=== PATIENT | female | born 1945 | race Caucasian/White ===

== ENCOUNTER 2017-01-15 08:04 | Emergency (ER) | payer BC ==
[~2017-01-15] VITALS: Ht 154.9 cm; Wt 63.6 kg
[~2017-01-15 08:04] MED LIST: ALEN70TA48 PO; ASPI-556 PO; ATOR20TA86 PO; CALC-879 PO; DSS100 PO; HYDR200T4 PO; ISOS10TA16 PO; LEVO50 PO; LOVA20 PO; METF500T4 PO; OMEG1CAP55 PO; TEMO15C TP; VALS80TA2 PO
[2017-01-15 08:21] LABS: GLUCOSE,POINT OF CARE 166 MG/DL (70-110)
[2017-01-15] MEDS ORDERED: ASPIRIN 81 MG CHEWABLE TABLET PO ONE ×2 (08:30→09:30)
[2017-01-15 08:43] LABS: BASOPHILS # (AUTO) 0.05 K/uL (0.00-0.20); BASOPHILS % (AUTO) 0.7 % (0.0-2.0); EOSINOPHILS # (AUTO) 0.04 K/uL (0.00-0.70); EOSINOPHILS % (AUTO) 0.55 % (1.0-6.0); HEMATOCRIT 34.1 % (36-46); HEMOGLOBIN 11.8 g/dL (12.0-16.0); LYMPHOCYTES # (AUTO) 1.1 K/uL (1.0-4.8); LYMPHOCYTES % (AUTO) 15.9 % (22.0-44.0); MEAN CORPUSCULAR HEMOGLOBIN 33.3 pg (26.0-34.0); MEAN CORPUSCULAR HGB CONC 34.6 G/dL (31.0-37.0); MEAN CORPUSCULAR VOLUME 96 fL (80-100); MONOCYTES # (AUTO) 0.3 K/uL (0.1-1.0); MONOCYTES % (AUTO) 4.2 % (2.0-9.0); NEUTROPHILS # (AUTO) 5.5 K/uL (1.8-7.7); NEUTROPHILS % (AUTO) 78.7 % (40.0-70.0); PLATELET COUNT (AUTO) 327 K/uL (150-450); RED BLOOD CELL COUNT(AUTO) 3.54 MIL/uL (4.00-5.20); RED CELL DISTRIBUTION WIDTH 12.9 % (11.5-14.5)
[2017-01-15 08:52] LABS: ANION GAP 8 mmol/L (8-16); CALCIUM, TOTAL 9.5 mg/dL (8.8-10.5); CARBON DIOXIDE 28 mmol/L (22-29); CHLORIDE 97 mmol/L (98-107); CREATININE 0.98 mg/dL (0.60-1.30); GLOMERULAR FILTR. RATE CALC 56 mL/min (>60); POTASSIUM 3.8 mmol/L (3.5-5.1); SODIUM SERUM 133 mmol/L (136-145); UREA NITROGEN, BLOOD 15 mg/dL (7-18)
[2017-01-15 09:01] LABS: B-TYPE NATRIURETIC PEPTIDE 28 pg/mL (0-100)
[2017-01-15 09:16] LABS: ALANINE AMINOTRANSFERASE 28 U/L (12-78); ALBUMIN 3.9 g/dL (3.4-5.0); ASPARTATE AMINOTRANSFERASE 22 U/L (15-37); BILIRUBIN,TOTAL 0.3 mg/dL (0.1-1.0); CREATINE KINASE MB 0.7 ng/mL (0-5); CREATINE KINASE, TOTAL 106 U/L (26-192); TOTAL PROTEIN, SERUM 7.6 g/dL (6.4-8.2)
[2017-01-15 10:46] LABS: APPEARANCE,URINE CLEAR (CLEAR); GLUCOSE, URINE (UA) NEGATIVE (NEGATIVE); KETONES,URINE NEGATIVE (NEGATIVE); LEUKOCYTE ESTERASE ,URINE NEGATIVE (NEGATIVE); OCCULT BLOOD,URINE NEGATIVE (NEGATIVE); PH,URINE 6.5 (5.0-8.0); PROTEIN,URINE NEGATIVE (NEGATIVE)
[2017-01-15 10:50] LABS: ADD UA MICROSCOPIC NO
[2017-01-15 11:07] VITALS: BP 156/69
== END 2017-01-15 11:30 | disposition home or self-care (01) ==
LOC: EMS 08:06
DX: R07.89 Other chest pain (principal); E11.9 Type 2 diabetes mellitus without complications; E03.9 Hypothyroidism, unspecified; I20.9 Angina pectoris, unspecified; K21.9 Gastro-esophageal reflux disease without esophagitis; E78.00 Pure hypercholesterolemia, unspecified; I10 Essential (primary) hypertension; Z87.440 Personal history of urinary (tract) infections; Z79.82 Long term (current) use of aspirin; Z88.2 Allergy status to sulfonamides
CPT/HCPCS: 82962; 93005; 99285

== ENCOUNTER 2017-06-17 10:35 | Emergency (ER) | payer BC ==
[~2017-06-17] VITALS: Ht 149.9 cm; Wt 47.3 kg
[~2017-06-17 10:35] MED LIST changes: +CALC-1085 PO; -CALC-879 PO; +OMEG-136 PO; -OMEG1CAP55 PO
[2017-06-17 10:47] LABS: GLUCOSE,POINT OF CARE 130 MG/DL (70-110)
[2017-06-17 11:22] LABS: BASOPHILS % (AUTO) 0.7 % (0.0-2.0); EOSINOPHILS % (AUTO) 1.1 % (1.0-6.0); HEMATOCRIT 34.2 % (36-46); HEMOGLOBIN 11.8 g/dL (12.0-16.0); LYMPHOCYTES % (AUTO) 11.9 % (22.0-44.0); MEAN CORPUSCULAR HEMOGLOBIN 32.3 pg (26.0-34.0); MEAN CORPUSCULAR HGB CONC 34.5 G/dL (31.0-37.0); MEAN CORPUSCULAR VOLUME 94 fL (80-100); MONOCYTES # (AUTO) 0.6 K/uL (0.1-1.0); MONOCYTES % (AUTO) 7.2 % (2.0-9.0); NEUTROPHILS # (AUTO) 6.8 K/uL (1.8-7.7); NEUTROPHILS % (AUTO) 79.1 % (40.0-70.0); PLATELET COUNT (AUTO) 348 K/uL (150-450); RED BLOOD CELL COUNT(AUTO) 3.66 MIL/uL (4.00-5.20); RED CELL DISTRIBUTION WIDTH 12.9 % (11.5-14.5); WHITE BLOOD COUNT (AUTO) 8.5 K/uL (4.5-11.0)
[2017-06-17 11:32] LABS: ANION GAP 11 mmol/L (8-16); CALCIUM, TOTAL 9.6 mg/dL (8.8-10.5); CARBON DIOXIDE 26 mmol/L (22-29); CHLORIDE 100 mmol/L (98-107); CREATININE 0.92 mg/dL (0.60-1.30); GLOMERULAR FILTR. RATE CALC 60 mL/min (>60); POTASSIUM 3.9 mmol/L (3.5-5.1); SODIUM SERUM 137 mmol/L (136-145); UREA NITROGEN, BLOOD 15 mg/dL (7-18)
[2017-06-17 11:36] LABS: INR 0.9 (0.9-1.1); PROTHROMBIN TIME 9.8 SEC (9.4-11.6)
[2017-06-17 11:50] LABS: B-TYPE NATRIURETIC PEPTIDE 66 pg/mL (0-100)
[2017-06-17 11:56] LABS: ALANINE AMINOTRANSFERASE 52 U/L (12-78); ALBUMIN 3.6 g/dL (3.4-5.0); ASPARTATE AMINOTRANSFERASE 33 U/L (15-37); BILIRUBIN,TOTAL 0.5 mg/dL (0.1-1.0); CREATINE KINASE, TOTAL 104 U/L (26-192); TOTAL PROTEIN, SERUM 8.5 g/dL (6.4-8.2)
[2017-06-17 11:57] LABS: CREATINE KINASE MB < 0.5 ng/mL (0-5)
[2017-06-17] MEDS ORDERED: DOXYCYCLINE 100 MG in DEXTROSE 5%-WATER 100 ML IV ONE (12:30)
[2017-06-17 14:15] VITALS: BP 115/57
== END 2017-06-17 14:17 | disposition home or self-care (01) ==
LOC: EMS 10:36
DX: L03.116 Cellulitis of left lower limb (principal); E11.9 Type 2 diabetes mellitus without complications; I10 Essential (primary) hypertension; E78.00 Pure hypercholesterolemia, unspecified; E03.9 Hypothyroidism, unspecified; K21.9 Gastro-esophageal reflux disease without esophagitis; Z88.2 Allergy status to sulfonamides
CPT/HCPCS: 36415; 80053; 82550; 82553; 82962; 83880; 84484; 85025; 85610; 85730; 87040; 93005; 93971; 96374; 99285; J3490; J7060

== ENCOUNTER 2017-06-28 09:49 | Emergency (ER) | payer BC ==
[~2017-06-28] VITALS: Ht 149.9 cm; Wt 47.3 kg
[2017-06-28] MEDS ORDERED: AMLO-512 PO (09:56)
[2017-06-28 10:02] LABS: GLUCOSE,POINT OF CARE 162 MG/DL (70-110)
[2017-06-28] MEDS ORDERED: SODIUM CHLORIDE 0.9% 1,000 ML IV ONE (11:15)
[2017-06-28] MEDS ORDERED: ONDANSETRON HCL 4 MG/2 ML VIAL IVP ONE (11:15)
[2017-06-28 11:37] VITALS: BP 122/50
[2017-06-28 11:47] LABS: BASOPHILS % (AUTO) 0.4 % (0.0-2.0); EOSINOPHILS % (AUTO) 0.2 % (1.0-6.0); HEMATOCRIT 34.4 % (36-46); HEMOGLOBIN 12.1 g/dL (12.0-16.0); LYMPHOCYTES # (AUTO) 0.8 K/uL (1.0-4.8); LYMPHOCYTES % (AUTO) 12.5 % (22.0-44.0); MEAN CORPUSCULAR HEMOGLOBIN 32.1 pg (26.0-34.0); MEAN CORPUSCULAR HGB CONC 35.1 G/dL (31.0-37.0); MEAN CORPUSCULAR VOLUME 92 fL (80-100); MONOCYTES # (AUTO) 0.3 K/uL (0.1-1.0); NEUTROPHILS # (AUTO) 5.4 K/uL (1.8-7.7); NEUTROPHILS % (AUTO) 81.9 % (40.0-70.0); PLATELET COUNT (AUTO) 529 K/uL (150-450); RED BLOOD CELL COUNT(AUTO) 3.75 MIL/uL (4.00-5.20); RED CELL DISTRIBUTION WIDTH 12.1 % (11.5-14.5)
[2017-06-28 11:53] LABS: ANION GAP 11 mmol/L (8-16); CALCIUM, TOTAL 9.9 mg/dL (8.8-10.5); CARBON DIOXIDE 25 mmol/L (22-29); CHLORIDE 95 mmol/L (98-107); CREATININE 0.88 mg/dL (0.60-1.30); GLOMERULAR FILTR. RATE CALC > 60 mL/min (>60); GLUCOSE,RANDOM 96 mg/dL (70-110); POTASSIUM 4.2 mmol/L (3.5-5.1); SODIUM SERUM 131 mmol/L (136-145); UREA NITROGEN, BLOOD 15 mg/dL (7-18)
[2017-06-28 11:59] LABS: ALANINE AMINOTRANSFERASE 27 U/L (12-78); ALBUMIN 3.8 g/dL (3.4-5.0); ALKALINE PHOSPHATASE 124 U/L (46-116); ASPARTATE AMINOTRANSFERASE 27 U/L (15-37); BILIRUBIN,TOTAL 0.3 mg/dL (0.1-1.0); TOTAL PROTEIN, SERUM 8.3 g/dL (6.4-8.2)
== END 2017-06-28 12:58 | disposition home or self-care (01) ==
LOC: EMS 09:50
DX: J11.1 Influenza due to unidentified influenza virus with other respiratory manifestations (principal); E11.9 Type 2 diabetes mellitus without complications; K21.9 Gastro-esophageal reflux disease without esophagitis; E78.00 Pure hypercholesterolemia, unspecified; I10 Essential (primary) hypertension; E03.9 Hypothyroidism, unspecified; M81.0 Age-related osteoporosis without current pathological fracture; M32.9 Systemic lupus erythematosus, unspecified; Z88.2 Allergy status to sulfonamides; Z86.718 Personal history of other venous thrombosis and embolism; Z79.82 Long term (current) use of aspirin
CPT/HCPCS: 36415; 80053; 82962; 85025; 96374; 99284; J2405; J7030

== ENCOUNTER 2020-11-16 16:48 | Inpatient (IN) | payer BC ==
[~2020-11-16] VITALS: Ht 149.9 cm; Wt 44.1 kg
[~2020-11-16 16:48] MED LIST changes: -ALEN70TA48 PO; +ALEN70TA65 PO; +AMLO-258 PO; -LOVA20 PO; +LOVA20TA73 PO; +METF-960 PO; -METF500T4 PO; -TEMO15C TP; -VALS80TA2 PO
[2020-11-16] MEDS ORDERED: SODIUM CHLORIDE 0.9% 1,000 ML IV ONE (17:30)
[2020-11-16] MEDS ORDERED: ONDANSETRON HCL 4 MG/2 ML VIAL IVP ONE (17:30)
[2020-11-16 17:38] LABS: BASOPHILS % (AUTO) 0.2 % (0.0-2.0); EOSINOPHILS % (AUTO) 0.1 % (1.0-6.0); HEMOGLOBIN 9.6 g/dL (12.0-16.0); LYMPHOCYTES # (AUTO) 0.6 K/uL (1.0-4.8); LYMPHOCYTES % (AUTO) 5.9 % (22.0-44.0); MEAN CORPUSCULAR HEMOGLOBIN 31.9 pg (26.0-34.0); MEAN CORPUSCULAR HGB CONC 35.4 G/dL (31.0-37.0); MEAN CORPUSCULAR VOLUME 90 fL (80-100); MONOCYTES # (AUTO) 0.4 K/uL (0.1-1.0); MONOCYTES % (AUTO) 3.9 % (2.0-9.0); NEUTROPHILS # (AUTO) 9.2 K/uL (1.8-7.7); PLATELET COUNT (AUTO) 311 K/uL (150-450); RED CELL DISTRIBUTION WIDTH 13.1 % (11.5-14.5)
[2020-11-16 17:39] LABS: NEUTROPHILS % (AUTO) 89.9 % (40.0-70.0)
[2020-11-16 18:13] LABS: BILIRUBIN,TOTAL 0.6 mg/dL (0.1-1.0); CALCIUM, TOTAL 8.6 mg/dL (8.8-10.5); CREATININE 0.99 mg/dL (0.60-1.30); MAGNESIUM 1.4 mg/dL (1.80-2.40); POTASSIUM 3.7 mmol/L (3.5-5.1)
[2020-11-16] MEDS ORDERED: MAGNESIUM SULFATE 2 GM/WATER 50 ML IV ONE (18:45)
[2020-11-16] MEDS ORDERED: RINGERS SOLUTION,LACTATED 1,500 ML IV ONE (18:45)
[2020-11-16] MEDS ORDERED: MAGNESIUM SULFATE 2 GM/WATER 50 ML IV PRN (19:15)
[2020-11-16] MEDS ORDERED: MAGNESIUM SULFATE 4 GM/WATER 100 ML IV PRN (19:15)
[2020-11-16] MEDS ORDERED: MAGNESIUM OXIDE 400 MG TABLET PO PRN (19:15)
[2020-11-16 20:10] LABS: POTASSIUM,URINE RANDOM 12 mmol/L (12-75); SODIUM,URINE RANDOM 72 mmol/l (20-110)
[2020-11-16] MEDS ORDERED: DEXTROSE 50%-WATER 25 GM/50 ML SYRINGE IVP PRN (20:15)
[2020-11-16 20:19] LABS: % IRON SATURATION 24.1 % (22-44); IRON, SERUM 91 mcg/dL (50-175); TOTAL IRON BINDING CAPACITY 377 mcg/dL (250-450)
[2020-11-16 20:20] LABS: ANION GAP 12 mmol/L (8-16); CALCIUM, TOTAL 8.7 mg/dL (8.8-10.5); CARBON DIOXIDE 22 mmol/L (22-29); CHLORIDE 91 mmol/L (98-107); CREATININE 0.89 mg/dL (0.60-1.30); GLOMERULAR FILTR. RATE CALC > 60 mL/min (>60); GLUCOSE,RANDOM 147 mg/dL (70-110); POTASSIUM 4.1 mmol/L (3.5-5.1); SODIUM SERUM 125 mmol/L (136-145); UREA NITROGEN, BLOOD 14 mg/dL (7-18)
[2020-11-16] MEDS: SODIUM CHLORIDE 0.9% 1,500 ML IV ONE ×2 (20:27→20:33)
[2020-11-16 20:29] LABS: THYROID STIMULATING HORMONE 0.44 uIU/mL (0.36-3.74)
[2020-11-16 20:57] LABS: URIC ACID 2.7 mg/dL (2.6-7.2)
[2020-11-16 20:58] LABS: COVID AG,FIA SOURCE NASAL SWAB
[2020-11-16] MEDS ORDERED: LOVASTATIN 20 MG TABLET PO SCH (21:00)
[2020-11-16 21:47] VITALS: BP 151/65
[2020-11-16] MEDS ORDERED: DESMOPRESSIN ACETATE 4 MCG/ML VIAL IVP SCH (22:00)
[2020-11-16] MEDS: ACETAMINOPHEN 325 MG TABLET PO PRN (22:09)
[2020-11-16] MEDS: ISOSORBIDE DINITRATE 10 MG TABLET PO SCH (22:09)
[2020-11-16] MEDS: DESMOPRESSIN ACETATE 4 MCG/ML VIAL IVP SCH (22:10)
[2020-11-16 22:44] LABS: ANION GAP 9 mmol/L (8-16); CALCIUM, TOTAL 8.7 mg/dL (8.8-10.5); CARBON DIOXIDE 25 mmol/L (22-29); CHLORIDE 94 mmol/L (98-107); CREATININE 0.83 mg/dL (0.60-1.30); GLOMERULAR FILTR. RATE CALC > 60 mL/min (>60); GLUCOSE,RANDOM 125 mg/dL (70-110); PHOSPHORUS 3.1 mg/dL (2.5-4.9); SODIUM SERUM 128 mmol/L (136-145); UREA NITROGEN, BLOOD 13 mg/dL (7-18)
[2020-11-16] MEDS ORDERED: DEXTROSE 5%-WATER 1,000 ML IV SCH ×2 (23:30)
[2020-11-17] VITALS (8 sets, daily range): BP systolic 99–118; BP diastolic 45–55
[2020-11-17] MEDS ORDERED: PNEUMOCOCCAL VACCINE POLYVALENT 0.5 ML VIAL [PPSV23] IM. ONE (00:45)
[2020-11-17 04:45] LABS: ANION GAP 4 mmol/L (8-16); CALCIUM, TOTAL 8.4 mg/dL (8.8-10.5); CARBON DIOXIDE 28 mmol/L (22-29); CHLORIDE 93 mmol/L (98-107); CREATININE 0.69 mg/dL (0.60-1.30); GLUCOSE,RANDOM 88 mg/dL (70-110); POTASSIUM 3.9 mmol/L (3.5-5.1); SODIUM SERUM 125 mmol/L (136-145); THYROID STIMULATING HORMONE 0.32 uIU/mL (0.36-3.74); UREA NITROGEN, BLOOD 11 mg/dL (7-18)
[2020-11-17 04:47] LABS: GLOMERULAR FILTR. RATE CALC > 60 mL/min (>60)
[2020-11-17] MEDS ORDERED: LIDOCAINE 2% VISCOUS 15 ML SOLUTION UDCUP PO PRN (05:00)
[2020-11-17] MEDS ORDERED: CYCLOBENZAPRINE HCL 10 MG TABLET PO ONE (06:30)
[2020-11-17] MEDS: LEVOTHYROXINE SODIUM 50 MCG TABLET PO SCH (06:35)
[2020-11-17 08:06] LABS: GLUCOMETER DEV NAME(LOC) 5N.1C; GLUCOSE,POINT OF CARE 103 MG/DL (70-110)
[2020-11-17 08:11] LABS: ANION GAP 7 mmol/L (8-16); CALCIUM, TOTAL 8.3 mg/dL (8.8-10.5); CARBON DIOXIDE 26 mmol/L (22-29); CHLORIDE 90 mmol/L (98-107); CREATININE 0.67 mg/dL (0.60-1.30); GLUCOSE,RANDOM 98 mg/dL (70-110); POTASSIUM 3.8 mmol/L (3.5-5.1); UREA NITROGEN, BLOOD 10 mg/dL (7-18)
[2020-11-17 08:14] LABS: GLOMERULAR FILTR. RATE CALC > 60 mL/min (>60); SODIUM SERUM 123 mmol/L (136-145)
[2020-11-17] MEDS: ASPIRIN 81 MG DR TABLET PO SCH (08:26)
[2020-11-17] MEDS: HYDROXYCHLOROQUINE SULFATE 200 MG TABLET PO SCH (08:26)
[2020-11-17] MEDS: ISOSORBIDE DINITRATE 10 MG TABLET PO SCH ×2 (08:26→20:25)
[2020-11-17] MEDS: DOCUSATE SODIUM 100 MG CAPSULE PO SCH (08:26)
[2020-11-17] MEDS: ONDANSETRON HCL 4 MG/2 ML VIAL IVP PRN ×2 (08:33→18:09)
[2020-11-17] MEDS: AmLODIPine BESYLATE 10 MG TABLET PO SCH (09:00)
[2020-11-17] MEDS: DESMOPRESSIN ACETATE 4 MCG/ML VIAL IVP SCH (09:34)
[2020-11-17 10:20] LABS: ANION GAP 8 mmol/L (8-16); CALCIUM, TOTAL 8.3 mg/dL (8.8-10.5); CARBON DIOXIDE 26 mmol/L (22-29); CHLORIDE 91 mmol/L (98-107); CREATININE 0.81 mg/dL (0.60-1.30); GLOMERULAR FILTR. RATE CALC > 60 mL/min (>60); GLUCOSE,RANDOM 190 mg/dL (70-110); POTASSIUM 3.8 mmol/L (3.5-5.1); SODIUM SERUM 125 mmol/L (136-145); UREA NITROGEN, BLOOD 11 mg/dL (7-18)
[2020-11-17] MEDS ORDERED: ATOR40TA28 PO (11:18)
[2020-11-17] MEDS ORDERED: DENO60DI SQ (11:18)
[2020-11-17] MEDS ORDERED: FAMO20TA8 PO (11:18)
[2020-11-17] MEDS ORDERED: DOCU-275 PO (11:18)
[2020-11-17] MEDS ORDERED: LEVO75 PO (11:18)
[2020-11-17] MEDS ORDERED: LOSA100T58 PO (11:18)
[2020-11-17] MEDS ORDERED: OMEP20CA12 PO (11:18)
[2020-11-17] MEDS ORDERED: ASPI-1444 PO (11:18)
[2020-11-17] MEDS: INSULIN LISPRO 100 UNITS/ML SQ PRN ×2 (11:35→20:27)
[2020-11-17 11:43] LABS: GLUCOMETER DEV NAME(LOC) 5N.1C; GLUCOSE,POINT OF CARE 162 MG/DL (70-110)
[2020-11-17 15:00] LABS: CALCIUM, TOTAL 8.6 mg/dL (8.8-10.5); CREATININE 0.93 mg/dL (0.60-1.30)
[2020-11-17 17:32] LABS: GLUCOMETER DEV NAME(LOC) 5S.1; GLUCOSE,POINT OF CARE 129 MG/DL (70-110)
[2020-11-17] MEDS: ATORVASTATIN CALCIUM 40 MG TABLET PO SCH (20:24)
[2020-11-18 00:26] LABS: GLUCOMETER DEV NAME(LOC) 5S.1; GLUCOSE,POINT OF CARE 244 MG/DL (70-110)
[2020-11-18 05:06] VITALS: BP 120/55
[2020-11-18] MEDS: LEVOTHYROXINE SODIUM 50 MCG TABLET PO SCH (05:37)
[2020-11-18 07:27] LABS: GLUCOMETER DEV NAME(LOC) 5S.1; GLUCOSE,POINT OF CARE 105 MG/DL (70-110)
[2020-11-18 07:36] VITALS: BP 119/61
[2020-11-18] MEDS: ONDANSETRON HCL 4 MG/2 ML VIAL IVP PRN (08:13)
[2020-11-18] MEDS: HYDROXYCHLOROQUINE SULFATE 200 MG TABLET PO SCH (08:24)
[2020-11-18] MEDS: DOCUSATE SODIUM 100 MG CAPSULE PO SCH (08:24)
[2020-11-18] MEDS: ISOSORBIDE DINITRATE 10 MG TABLET PO SCH ×2 (08:24→20:56)
[2020-11-18] MEDS: AmLODIPine BESYLATE 10 MG TABLET PO SCH (08:24)
[2020-11-18] MEDS: ASPIRIN 81 MG DR TABLET PO SCH (08:24)
[2020-11-18] MEDS ORDERED: TOLVAPTAN 15 MG TABLET PO ONE (10:30)
[2020-11-18 11:22] VITALS: BP 117/78
[2020-11-18 11:34] LABS: MAGNESIUM 1.7 mg/dL (1.80-2.40)
[2020-11-18 15:34] VITALS: BP 109/49
[2020-11-18 19:14] LABS: GLUCOMETER DEV NAME(LOC) 5S.1; GLUCOSE,POINT OF CARE 166 MG/DL (70-110)
[2020-11-18 19:36] VITALS: BP 106/51
[2020-11-18] MEDS: ATORVASTATIN CALCIUM 40 MG TABLET PO SCH (20:56)
[2020-11-18] MEDS: INSULIN LISPRO 100 UNITS/ML SQ PRN (20:58)
[2020-11-18 23:29] VITALS: BP 94/49
[2020-11-19 04:22] VITALS: BP 103/52
[2020-11-19] MEDS: LEVOTHYROXINE SODIUM 50 MCG TABLET PO SCH (06:02)
[2020-11-19 07:34] LABS: ANION GAP 9 mmol/L (8-16); CALCIUM, TOTAL 9.3 mg/dL (8.8-10.5); CARBON DIOXIDE 25 mmol/L (22-29); CHLORIDE 102 mmol/L (98-107); GLUCOSE,RANDOM 133 mg/dL (70-110); POTASSIUM 4.3 mmol/L (3.5-5.1); SODIUM SERUM 136 mmol/L (136-145); UREA NITROGEN, BLOOD 18 mg/dL (7-18)
[2020-11-19 07:35] LABS: GLOMERULAR FILTR. RATE CALC > 60 mL/min (>60)
[2020-11-19 07:36] VITALS: BP 109/59
[2020-11-19] MEDS: DOCUSATE SODIUM 100 MG CAPSULE PO SCH (08:43)
[2020-11-19] MEDS: ISOSORBIDE DINITRATE 10 MG TABLET PO SCH (08:44)
[2020-11-19] MEDS: ASPIRIN 81 MG DR TABLET PO SCH (08:44)
[2020-11-19] MEDS: HYDROXYCHLOROQUINE SULFATE 200 MG TABLET PO SCH (08:44)
[2020-11-19] MEDS: AmLODIPine BESYLATE 10 MG TABLET PO SCH (08:44)
[2020-11-19 11:23] VITALS: BP 123/64
[2020-11-19] MEDS: INSULIN LISPRO 100 UNITS/ML SQ PRN ×3 (11:56→20:06)
[2020-11-19 12:39] LABS: GLUCOMETER DEV NAME(LOC) 5N.3; GLUCOSE,POINT OF CARE 151 MG/DL (70-110)
[2020-11-19 12:39] LABS: GLUCOMETER DEV NAME(LOC) 5N.3; GLUCOSE,POINT OF CARE 230 MG/DL (70-110)
[2020-11-19 12:39] LABS: GLUCOMETER DEV NAME(LOC) 5N.3; GLUCOSE,POINT OF CARE 141 MG/DL (70-110)
[2020-11-19] MEDS ORDERED: TOLVAPTAN 15 MG TABLET PO ONE (12:45)
[2020-11-19] MEDS: ACETAMINOPHEN 325 MG TABLET PO PRN (14:44)
[2020-11-19 15:33] VITALS: BP 118/61
[2020-11-19 19:35] VITALS: BP 116/46
[2020-11-19] MEDS: ATORVASTATIN CALCIUM 40 MG TABLET PO SCH (20:04)
[2020-11-19 23:37] VITALS: BP 118/58
[2020-11-20 04:13] VITALS: BP 142/72
[2020-11-20] MEDS: ACETAMINOPHEN 325 MG TABLET PO PRN ×2 (04:22→12:57)
[2020-11-20] MEDS: LEVOTHYROXINE SODIUM 50 MCG TABLET PO SCH (05:59)
[2020-11-20 06:07] LABS: GLUCOMETER DEV NAME(LOC) 5N.1C; GLUCOSE,POINT OF CARE 157 MG/DL (70-110)
[2020-11-20 07:44] VITALS: BP 119/65
[2020-11-20] MEDS: DOCUSATE SODIUM 100 MG CAPSULE PO SCH (08:01)
[2020-11-20] MEDS: HYDROXYCHLOROQUINE SULFATE 200 MG TABLET PO SCH (08:01)
[2020-11-20] MEDS: ASPIRIN 81 MG DR TABLET PO SCH (08:01)
[2020-11-20 09:01] LABS: GLUCOMETER DEV NAME(LOC) 5S.2B; GLUCOSE,POINT OF CARE 118 MG/DL (70-110)
[2020-11-20] MEDS ORDERED: ATOR20TA86 PO (09:26)
[2020-11-20] MEDS ORDERED: [UNRECOGNIZED DRUG - CODE] PO (09:28)
[2020-11-20] MEDS ORDERED: TOLVAPTAN 15 MG TABLET PO ONE (11:15)
[2020-11-20 11:26] VITALS: BP 112/57
[2020-11-20] MEDS: INSULIN LISPRO 100 UNITS/ML SQ PRN (11:53)
[2020-11-20] MEDS ORDERED: METF-960 PO (12:14)
[2020-11-20 19:11] LABS: GLUCOMETER DEV NAME(LOC) 5N.3; GLUCOSE,POINT OF CARE 154 MG/DL (70-110)
[2020-11-20 23:49] LABS: GLUCOMETER DEV NAME(LOC) 5S.1; GLUCOSE,POINT OF CARE 160 MG/DL (70-110)
[2020-11-27] MEDS ORDERED: ALENDRONATE SODIUM 70 MG TABLET PO SCH (06:30)
== END 2020-11-20 14:05 | disposition home or self-care (01) | DRG 643 ==
LOC: EMS 16:51 → UNDOADMIN 19:09 → 5S 19:09 → 5N 19:09
PROVIDERS: ADMIT Internal Medicine; ATTEND Internal Medicine
DX: E22.2 Syndrome of inappropriate secretion of antidiuretic hormone (principal); G93.41 Metabolic encephalopathy; E43 Unspecified severe protein-calorie malnutrition; Z68.1 Body mass index [BMI] 19.9 or less, adult; E11.9 Type 2 diabetes mellitus without complications; E78.5 Hyperlipidemia, unspecified; I10 Essential (primary) hypertension; M32.9 Systemic lupus erythematosus, unspecified; E03.9 Hypothyroidism, unspecified; M81.0 Age-related osteoporosis without current pathological fracture; Z82.49 Family history of ischemic heart disease and other diseases of the circulatory system; Z83.3 Family history of diabetes mellitus; Z87.440 Personal history of urinary (tract) infections; Z79.4 Long term (current) use of insulin; Z85.810 Personal history of malignant neoplasm of tongue; Z85.89 Personal history of malignant neoplasm of other organs and systems; E83.52 Hypercalcemia; D64.9 Anemia, unspecified; Z20.822 Contact with and (suspected) exposure to COVID-19; Z88.1 Allergy status to other antibiotic agents; K21.9 Gastro-esophageal reflux disease without esophagitis
CPT/HCPCS: 80048; 80053; 82271; 82533; 82550; 82962; 83036; 83540; 83550; 83690; 83735; 83880; 83930; 83935; 84100; 84133; 84295; 84300; 84443; 84484; 84550; 85018; 85025; 87426; 92610; 93005; 99285; J2405; J2597; J3475; J7030; J7060; J7120